=== PATIENT | male | born 1975 | race Caucasian/White ===

== ENCOUNTER 2017-02-02 20:41 | Emergency (ER) | payer BC ==
[2017-02-02 20:42] VITALS: BP 172/88; PULSE 101; RESP 16; TEMP 98.7; O2SAT 99
--- NOTE | 2017-02-02 23:41 | PD ---
HPI Chief Complaint: Injury Time Seen by Provider: 23:39 Travel History International Travel<30 days: No Contact w/Intl Traveler<30days: No Traveled to known affect area: No History of Present Illness HPI Patient comes in complaining of right knee pain that began earlier today while [place]bee [place] the beach. Patient states he jumped to catch the frisbee and then landed. Patient is uncertain of the pain began when he jumped or landed. Patient complaining of a pulling sensation in the lateral posterior aspect of his right knee without radiation. Patient tried using ice, elevating it, and taking ibuprofen with minimal to no relief of symptoms. Pain is worse with walking primarily downstairs. Denies any numbness or tingling anywhere. Denies any direct trauma. PFSH Past Medical History Medical History: Denies Significant Hx Diminished Hearing: No Past Surgical History Other Surgery: Yes (ROTATOR CUFF SX X2, LEFT KNEE X2 ) Social History Alcohol Use: No Tobacco Use: Yes (1 PPD ) Substance Use: No Allergies-Medications (Allergen,Severity, Reaction): Coded Allergies: No Known Allergies (Unverified , 02/02/17) Reported Meds & Prescriptions Reported Meds & Active Scripts Active Flexeril (Cyclobenzaprine HCl) 10 Mg Tab 10 Mg PO Q8HR PRN Do not drive or operate heavy machinery this medication can make you drowsy. Do not consume alcohol while taking this medication. Naprosyn (Naproxen) 500 Mg Tab 500 Mg PO Q12HR PRN Review of Systems Except as stated in HPI: all other systems reviewed are Neg Physical Exam Narrative GENERAL: Well-developed, overly nourished, in no acute distress, and non-ill appearing. SKIN: Focused skin assessment warm and dry. HEAD: Atraumatic. Normocephalic. EYES: Pupils equal and round. EOMI. No scleral icterus. No injection or drainage. ENT: No nasal bleeding or discharge. Mucous membranes pink and moist. NECK: Trachea midline. Supple. No nuclear rigidity. CARDIOVASCULAR: Dorsal pulses 2+, intact, and equal bilaterally. Capillary refill less than 2 seconds. Negative Homans sign bilaterally. No pedal edema. RESPIRATORY: No accessory muscle use. No respiratory distress. MUSCULOSKELETAL: No obvious deformities. No clubbing. No cyanosis. No edema. Full range of motion. Knee: Negative patellar apprehension, varus and valgus maneuvers, anterior draw test, and Sarah test. Pulses equal BL distal to injury. Capillary refill less than 2 seconds distal to injury and equal BL. FROM distal to injury and equal BL. Strength distal to injury equal BL. NV intact distal to injury. Dorsal pulses equal BL. Sensation equal BL 1st web space. Patient reports tenderness palpation over the lateral aspect right knee. There is no crepitus or step-off. NEUROLOGICAL: Awake and alert. No obvious cranial nerve deficits. Motor grossly within normal limits. Normal speech. PSYCHIATRIC: Appropriate mood and affect; insight and judgment normal. Data Data Last Documented VS Vital Signs Date Time Temp Pulse Resp B/P Pulse Ox O2 Delivery O2 Flow Rate FiO2 02/02/17 20:42 98.7 101 16 172/88 99 Room Air Orders Acetamin-Hydrocod 325-5 Mg ([place] 5-325 (02/02/17 23:45) Ice/Cold Pack (02/02/17 23:38) Knee, Complete (4vws) (02/02/17 ) Splint Or Brace Apply/Monitor (02/03/17 00:18) Immobilizer Knee 20 Inch (02/03/17 ) [facility] Medical Decision Making Medical Screen Exam Complete: Yes Emergency Medical Condition: Yes Interpretation(s) Right knee x-ray read by the radiologist shows: Normal examination for a patient of this age. Differential Diagnosis Fracture, avulsion, sprain, dislocation, contusion, other Narrative Course There is no clinical evidence to suspect bony injury by exam. Radiographic examination revealed no fracture seen at this time. No obvious ligamental injury or obvious internal derangement is noted at this time. The anterior, posterior, lateral and medial collateral ligaments are intact and symmetrical. The distal extremity appears neurovascularly intact, without evidence of neurovascular injury nor compartment syndrome. Tendon exam also was intact. The effected limb was immobilized. The patient was discharged on pain medication along with sprain and splint care instructions and given warnings for vascular compromise. The patient is to follow up with Orthopedics. The patient agrees with plan. Patient in no obvious distress upon re-evaluation. All pertinent Radiology result(s) discussed with patient/family. Patient was asked if they wanted to speak to my attending, which the patient did not wish to do at this time. Any questions/concerns in reference to patient diagnosis/condition discussed and clarified prior to patient's discharge. Reinforced sheer importance of close follow up with patient's primary physician or primary care clinic and/or orthopedics. Instructed patient to return to ED immediately, if symptoms return/ worsen. Pt showed understanding of above instructions. Further instructions and recommendations were detailed in discharge paperwork. Pt ambulated without difficulty out of ED at discharge with knee immobilizer. Diagnosis Primary Impression: Right knee sprain Qualified Code: S83.91XA - Sprain of right knee, unspecified ligament, initial encounter Referrals: Orthopedist Patient Instructions: General Instructions, Knee Immobilizer (ED), Knee Sprain (ED) Additional Instructions: Follow-up with your primary care physician and/or orthopedic in 3-5 days for reevaluation. Take all medication as prescribed. Apply ice to affected area 20 minutes prior to his needed for pain. Return to the emergency department if symptoms get worse. Med/Other Pt SpecificInfo: Prescription(s) given Scripts Cyclobenzaprine (Flexeril)10 Mg Tab10 Mg PO Q8HR PRN (MUSCLE PAIN) #12 TAB Ref [address] operate heavy machinery this medication can make you drowsy. Do not consume alcohol while taking this medication. Prov:Avi Johnson MD 02/03/17 Naproxen (Naprosyn)500 Mg [id number] Mg PO Q12HR PRN (PAIN SCALE 1 TO 10) #14 TAB Ref 0 Prov:Avi Johnson MD 02/03/17 Disposition: 01 DISCHARGE HOME Condition: Stable Roland Castaneda Feb 02, 2017 23:41
[2017-02-02] MEDS ORDERED: ACETAMINOPHEN/HYDROcodone 325 MG/5 MG TAB PO ONE (23:45)
--- NOTE | 2017-02-03 00:06 | RADRPT ---
EXAM DATE/TIME: 02/02/2017 23:47 [facility] COMPARISON: No previous studies available for comparison. INDICATIONS : Right knee pain post fall today. MEDICAL HISTORY : None. SURGICAL HISTORY : None. ENCOUNTER: Initial ACUITY: 1 day PAIN SCORE: 9/10 LOCATION: Right knee. FINDINGS: Four view examination of the right knee demonstrates no evidence of fracture or dislocation. Bony mi neralization is normal. The articular surfaces are intact. The suprapatellar soft tissues have a no rmal configuration. CONCLUSION: Normal examination for a patient of this age. Erasmo Washington MD on February 03, 2017 at 0:04 Board Certified Radiologist. This report was verified electronically.
[2017-02-03] MEDS ORDERED: NAPR500 PO (00:20)
[2017-02-03] MEDS ORDERED: CYCL1TAB29 PO (00:20)
== END 2017-02-03 01:01 | disposition home or self-care (01) ==
LOC: NEPD 20:41
DX: S83.91XA Sprain of unspecified site of right knee, initial encounter (principal); F17.200 Nicotine dependence, unspecified, uncomplicated; Z79.899 Other long term (current) drug therapy; Y93.74 Activity, frisbee
CPT/HCPCS: 73564; 99283; L1830